=== PATIENT | female | born 1990 | race Caucasian/White ===

== ENCOUNTER 2016-12-26 09:27 | Emergency (ER) | payer BC, OTHER ==
[~2016-12-26] VITALS: Ht 162.6 cm; Wt 70.8 kg
[2016-12-26 10:41] LABS: BASOPHIL % 0.3 % (0-2); PLATELET COUNT 234 x10^3mcL (130-400); RED CELL DISTRIBUTION WIDTH 12.4 % (11.5-14.5)
[2016-12-26 11:01] LABS: UA SPECIFIC GRAVITY 1.015 (1.005-1.035); urine erythrocyte NEGATIVE (NEGATIVE)
[2016-12-26 11:41] LABS: microscopic required? YES
[2016-12-26 14:38] VITALS: BP 108/67
== END 2016-12-26 14:38 | disposition home or self-care (01) ==
LOC: ED 09:27
PROVIDERS: Emergency Medicine
DX: O20.0 Threatened abortion (principal); O23.41 Unspecified infection of urinary tract in pregnancy, first trimester; Z3A.11 11 weeks gestation of pregnancy
CPT/HCPCS: J0696; J7030

== ENCOUNTER 2018-10-05 00:28 | Emergency (ER) | payer OTHER ==
[~2018-10-05] VITALS: Ht 162.6 cm; Wt 73.9 kg
[2018-10-05 00:48] VITALS: Ht 162.6 cm; Wt 73.9 kg
[2018-10-05 02:07] LABS: BASOPHIL % 0.6 % (0-2); PLATELET COUNT 272 x10^3mcL (130-400); RED CELL DISTRIBUTION WIDTH 12.4 % (11.5-14.5)
[2018-10-05 02:10] LABS: CALCIUM 8.5 mg/dL (8.5-10.1); CARBON DIOXIDE 24.4 mmol/L (21-32); CHLORIDE SERUM 106 mmol/L (98-107); GFR1 > 60 mL/min; GLUCOSE SERUM 104 mg/dL (74-106); POTASSIUM SERUM 3.3 mmol/L (3.5-5.1); SODIUM SERUM 142 mmol/L (136-145)
[2018-10-05 02:15] LABS: ALBUMIN 4.3 g/dL (3.4-5.0); ALKALINE PHOSPHATASE 102 U/L (46-116); ALT/SGPT 27 U/L (14-59); AST/SGOT 20 U/L (15-37); BILIRUBIN TOTAL 0.55 mg/dL (0.20-1.00)
[2018-10-05 02:16] LABS: TOTAL PROTEIN, SERUM 8.6 g/dL (6.4-8.2)
[2018-10-05 03:26] VITALS: BP 107/59
== END 2018-10-05 03:26 | disposition home or self-care (01) ==
LOC: ED 00:28
PROVIDERS: Emergency Medicine
DX: R07.89 Other chest pain (principal); K59.00 Constipation, unspecified; F41.9 Anxiety disorder, unspecified; R06.02 Shortness of breath; R00.2 Palpitations; Z88.1 Allergy status to other antibiotic agents; Z98.890 Other specified postprocedural states
CPT/HCPCS: 36415

== ENCOUNTER 2019-06-17 00:43 | Emergency (ER) | payer OTHER ==
[~2019-06-17] VITALS: Ht 160 cm; Wt 72.6 kg
[2019-06-17 00:59] VITALS: Ht 160 cm; Wt 72.6 kg
[2019-06-17 02:48] VITALS: BP 123/78
== END 2019-06-17 02:48 | disposition home or self-care (01) ==
LOC: ED 00:43
DX: S63.502A Unspecified sprain of left wrist, initial encounter (principal); S63.501A Unspecified sprain of right wrist, initial encounter; S80.212A Abrasion, left knee, initial encounter; M62.838 Other muscle spasm; M54.5 Low back pain; Z88.1 Allergy status to other antibiotic agents; Z98.890 Other specified postprocedural states; V43.62XA Car passenger injured in collision with other type car in traffic accident, initial encounter; Y93.89 Activity, other specified; Y92.488 Other paved roadways as the place of occurrence of the external cause; Y99.8 Other external cause status
CPT/HCPCS: J1885